=== PATIENT | male | born 1955 | race Caucasian/White ===

== ENCOUNTER 2018-01-27 14:25 | Emergency (ER) | payer SELFPAY ==
[~2018-01-27] VITALS: Ht 188 cm; Wt 104.3 kg
--- OUTSIDE RECORDS SUMMARY | 2018-01-27 14:31 | XMS REPORT | Clinical Summary ---
Author Author [facility] Organization [facility] Address Unknown Phone Unavailable Care Team Providers Care Carrier Driver Name Role Phone Jose Haynes PCP Yohan Crockett MD Unavailable Jose Guadalupe Marcos MD Unavailable Merced Rob RN Unavailable Unavailable Zehra Singh Unavailable Unavailable Marcio Lawson RN Unavailable Unavailable Kevin Kelsey MD Unavailable Surinder Clemens MD Unavailable Clari Chowdary RN Unavailable Unavailable Ivy Aguilar RN Unavailable Unavailable Marcus Brown MD Unavailable Padma English RN Unavailable Unavailable Barbie Valdez RN Unavailable Unavailable Trisha Smith MD Unavailable Aristides Villasenor MD Unavailable Source Comments Some departments are not documenting in the electronic medical record. If you do not see the information that you expected, contact Release of Information in the Health Information Management department at [phone] for further assistance in locating additional records.[facility] Allergies Active Allergy Reactions Severity Noted Date Comments Codeine SEE COMMENTS Low 07/21/2010 Doesn't remember. Penicillins SEE COMMENTS Low 06/17/2010 Doesn't remember. Current Medications Prescription Sig. Disp. Refills Start End Date Status Date hyoscyamine (ANASPAZ; Place 1 Tab under tongue 30 Tab 3 03/17/20 Active NULEV; SYMAX FASTABS; every 4 hours as needed. 16 HYOMAX-FT; ED-SPAZ; OSCIMIN) 0.125 mg rapid dissolve tablet ciprofloxacin HCl (CIPRO) Take 1 Tab by mouth twice 2 Tab 0 07/03/20 Active 500 mg tablet daily. 16 Active Problems Problem Noted Date Bladder cancer 08/12/2010 Overview: Alberto Daugherty is a 60 y.o. male with a history of low grade Ta UCC last seen by Dr. Crockett in 2009 but has been lost to follow up, who is re-referred to clinic by Dr. Jimenez for further evaluation. L ast Assessment & Plan: 60 year old male with history of LG Ta UCC lost to follow up for 6 years who returns with concern for recurrence. Plan: 1. Will plan for cysto/TURBT/possible bilateral RPGs on 02/20/[address] Crockett to re-stage patient. If muscle invasive or high grade, will plan for neoadjuvant chemotherapy/radical cystectomy. If low grade, will plan for TURBT + mitomycin C. Risks, benefits, alternatives discussed and patient wishes to proceed. 2. Consented/Boarded 3. Abx supervisor production to OR 4. Need to obtain CT results from [facility] 5. PAT to call patient for pre-op screening. Family History Medical History Relation Name Comments Diabetes Father Heart Attack Father Heart Disease Father Hypertension Father Brain Tumor Mother Cancer Mother Diabetes Mother Stroke Mother Relation Name Status Comments Father Mother Social History Tobacco Use Types Packs/Day Years Used Date Former Smoker Cigarettes 2 15 Quit: 11/29/2004 Smokeless Tobacco: Never Used Comments: quit in 2003 Alcohol Use Drinks/Week oz/Week Comments Yes 2-3 Cans of 0.0 1-2 TIMES PER YEAR beer Sex Assigned at Date Recorded Not on file Last Filed Vital Signs Vital Sign Reading Time Taken Blood Pressure 148/66 07/03/2016 9:46 AM CDT Pulse 77 07/03/2016 9:46 AM CDT Temperature 36.4 C (97.5 F) 04/02/2016 12:15 PM CDT Respiratory Rate - - Oxygen Saturation 97% 04/02/2016 2:30 PM CDT Inhaled Oxygen - - Concentration Weight 105.7 kg (233 lb) 07/03/2016 9:46 AM CDT Height 186.7 cm (6' 1.5") 07/03/2016 9:46 AM CDT Body Mass Index 30.32 07/03/2016 9:46 AM CDT Plan of Treatment Health Maintenance Due Date Last Done Comments HEPATITIS C SCREENING 1954 PHYSICAL (COMPREHENSIVE) 1961 EXAM PERTUSSIS VACCINE 1965 TETANUS VACCINE 1971 COLORECTAL CANCER 2004 SCREENING SHINGLES VACCINE 2014 INFLUENZA VACCINE 06/29/2017 Results Not on filefrom Last 3 Months
--- OUTSIDE RECORDS SUMMARY | 2018-01-27 14:32 | XMS REPORT | Continuity of Care Document ---
Author Author [facility] Organization [facility] Address Unknown Phone Unavailable Allergies Active Description Code Type Severity Reaction Onset Reported/Identified Relationship to Patient Clinical Status Yes Penicillins [id number] Drug Allergy Unknown N/A 05/23/2010 Medications There is no data. Problems Date Dx Coded Attending Type Code Diagnosis Diagnosed By 02/06/2016 KENAN MIGUEL MD Ot R31.9 02/06/2016 KENAN MIGUEL MD Ot Z85.51 04/23/2016 KENAN MIGUEL MD Ot R31.9 HEMATURIA, UNSPECIFIED 04/23/2016 KENAN MIGUEL MD, Ot Z85.51 PERSONAL HISTORY OF MALIGNANT NEOPLASM O 04/24/2016 MILTON ANDRADE MD Ot N30.00 ACUTE CYSTITIS WITHOUT HEMATURIA 04/29/2016 ULPE BEGUM, MILTON P Ot N30.00 ACUTE CYSTITIS WITHOUT HEMATURIA 04/29/2016 LUPE BEGUM, MILTON P Ot N30.00 ACUTE CYSTITIS WITHOUT HEMATURIA 05/08/2016 LUPE BEGUM, MILTON P Ot N30.00 ACUTE CYSTITIS WITHOUT HEMATURIA 05/21/2016 LUPE BEGUM, MILTON P Ot N30.00 ACUTE CYSTITIS WITHOUT HEMATURIA Procedures There is no data. Results There is no data. Encounters ACCT No. Visit Date/Time Discharge Status Pt. Type Provider Facility Loc./Unit Complaint [id number] 04/23/2016 16:09:00 04/23/2016 23:59:59 CLS Outpatient MILTON ANDRADE MD [facility] LAB [id number] 01/20/2016 13:27:00 01/20/2016 23:59:59 CLS Outpatient KENAN MIGUEL MD [facility] RAD [id number] 07/04/2013 18:27:00 07/04/2013 23:59:59 CLS Outpatient [id number] 06/30/2013 17:55:00 06/30/2013 23:59:59 CLS Outpatient
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
--- NOTE | 2018-01-27 15:37 | Diagnostic Imaging Report ---
PATIENT HISTORY: Left shoulder pain after fall. TECHNIQUE: Three views of the left shoulder. COMPARISON: None. FINDINGS: There is a markedly comminuted fracture of the left humeral head and neck, with moderate displacement of the greater tuberosity component and approximately 2 cm of impaction. The humeral shaft is not only impacted but moderately displaced anteriorly. A portion of the articular surface of the humeral head appears subluxed inferiorly. There is a moderate lipohemarthrosis in the left shoulder. There are left-sided rib fractures which appear old. IMPRESSION: 1. Markedly comminuted, displaced, impacted intra-articular fracture of the left humeral head and neck, with anteroinferior subluxation of a fragment of the articular surface. 2. Left shoulder lipohemarthrosis. Dictated by: Dictated on workstation # [id number]
[2018-01-27] MEDS ORDERED: HYDR-34 PO (15:39)
[2018-01-27] MEDS ORDERED: HYDROmorphone (DILAUDID) 2 MG/ML VIAL ONE (15:47)
[2018-01-27] MEDS ORDERED: ONDANSETRON 4 MG (ZOFRAN) ORAL DISSOLVE TAB ONE (15:48)
[2018-01-27] MEDS ORDERED: HYDROmorphone (DILAUDID) 2 MG/ML VIAL IM PRN (16:00)
[2018-01-27] MEDS ORDERED: ONDANSETRON 8 MG (ZOFRAN) ORAL DISSOLVE TAB PO ONE (16:00)
[2018-01-27 16:21] VITALS: BP 139/83
== END 2018-01-27 16:21 | disposition home or self-care (01) ==
LOC: EDUNIT# 14:25 → ER 14:27
DX: S42.292A Other displaced fracture of upper end of left humerus, initial encounter for closed fracture (principal); R40.2142 Coma scale, eyes open, spontaneous, at arrival to emergency department; R40.2252 Coma scale, best verbal response, oriented, at arrival to emergency department; R40.2362 Coma scale, best motor response, obeys commands, at arrival to emergency department; Z88.0 Allergy status to penicillin; W18.30XA Fall on same level, unspecified, initial encounter
CPT/HCPCS: 73030; 96372